=== PATIENT | male | born 1965 | race Caucasian/White ===

== ENCOUNTER 2018-01-30 11:56 | Emergency (ER) | payer OTHER ==
[~2018-01-30] VITALS: Ht 182.9 cm; Wt 86.2 kg
[~2018-01-30 11:56] MED LIST: ARIP10; BUSP10 PO; CLON.5 PO; DILT120 PO; IBUP800 PO; LORA1 PO; QUET300; SYMBIAX; SYMBYAX PO; TRAM50 PO
[2018-01-30] MEDS ORDERED: PENVK500 PO (12:40)
[2018-01-30] MEDS ORDERED: TRAM50 PO (12:40)
== END 2018-01-30 12:56 | disposition home or self-care (01) ==
LOC: ER 11:56
DX: K02.9 Dental caries, unspecified (principal); Z79.899 Other long term (current) drug therapy; Z79.2 Long term (current) use of antibiotics
CPT/HCPCS: 99283

== ENCOUNTER 2020-09-03 13:52 | Emergency (ER) | payer OTHER ==
[~2020-09-03] VITALS: Ht 182.9 cm; Wt 76.7 kg
[~2020-09-03 13:52] MED LIST changes: +PENVK500 PO
== END 2020-09-03 15:02 | disposition home or self-care (01) ==
LOC: ER 13:52
DX: F25.9 Schizoaffective disorder, unspecified (principal); Z76.0 Encounter for issue of repeat prescription; F17.220 Nicotine dependence, chewing tobacco, uncomplicated; Z79.899 Other long term (current) drug therapy
CPT/HCPCS: 99282; A9270

== ENCOUNTER 2025-05-20 15:33 | Emergency (ER) | payer OTHER ==
[~2025-05-20] VITALS: Ht 182.9 cm; Wt 63.5 kg
[~2025-05-20 15:33] MED LIST changes: +PRAZ2 PO
[2025-05-20 16:32] VITALS: BP 168/86
== END 2025-05-20 16:44 | disposition home or self-care (01) ==
LOC: ER 15:33
DX: F20.9 Schizophrenia, unspecified (principal); Z88.8 Allergy status to other drugs, medicaments and biological substances
CPT/HCPCS: 99282

== ENCOUNTER 2025-05-22 10:03 | Emergency (ER) | payer OTHER ==
[~2025-05-22] VITALS: Ht 182.9 cm; Wt 63.5 kg
[2025-05-22 10:30] VITALS: BP 141/86
[2025-05-22] MEDS ORDERED: OLAN5 PO (10:54)
== END 2025-05-22 11:10 | disposition home or self-care (01) ==
LOC: ER 10:03
DX: F23 Brief psychotic disorder (principal); F17.220 Nicotine dependence, chewing tobacco, uncomplicated; Z53.29 Procedure and treatment not carried out because of patient's decision for other reasons
CPT/HCPCS: 99281